=== PATIENT | male | born 1980 | race Caucasian/White ===

== ENCOUNTER 2020-07-30 18:41 | Emergency (ER) | payer OTHER, MEDICAID, SELFPAY ==
--- NOTE | 2020-07-30 18:47 | ED_ITS ---
HPI - Abdominal Pain General Chief Complaint: Abdominal Pain Stated Complaint: stomach pain/constipated Time Seen by Provider: 07/30/20 18:42 Source: patient Mode of arrival: Ambulatory Limitations: no limitations History of Present Illness HPI narrative: 40-year-old male smoker with history of opioid abuse presents with increasing abdominal discomfort and decreased bowel movements for the past 10 days. He denies nausea or vomiting. He does have a decreased appetite. His pain is largely absent but on occasion he has intense episodes of crampy pain without provocation or palliation. He has tried no [id number] laxatives. He denies any fever or chills. He denies any dysuria, frequency or urgency. MD complaint: abdominal pain Onset (ago): day(s) Pain Consistency: intermittent Location: diffuse Severity: moderate Quality: cramping Radiation: none Migration to: no migration Relieving factors: nothing Exacerbating factors: nothing Context: history of similar episodes Associated symptoms: denies other symptoms Related Data Previous Rx's Medication Instructions Recorded methylnaltrexone [Relistor] 150 mg PO DAILY #30 tab 07/30/20 Allergies Allergy/AdvReac Type Severity Reaction Status Date / Time No Known Drug Allergies Allergy Verified 07/30/20 18:52 Review of Systems Constitutional Constitutional: Denies chills, Denies fatigue, Denies fever(s), Denies frequent falls, Denies lethargy and Denies weakness Eyes Eyes: Denies change in vision, Denies eye discharge, Denies irritation and Denies loss of vision ENT Ears, Nose, Mouth, and Throat: Denies change in voice, Denies dizziness, Denies neck pain, Denies sore throat and Denies throat swelling Cardiovascular Cardiovascular: Denies chest pain, Denies irregular heart rhythm, Denies lig htheadedness, Denies palpitations, Denies dyspnea, Denies dyspnea on exertion and Denies orthopnea Respiratory Respiratory: Denies cough, Denies dyspnea, Denies dyspnea on exertion and Denies wheezing Gastrointestinal Gastrointestinal: Reports abdominal pain, Denies change in bowel habits, Reports cramping, Denies diarrhea, Denies nausea and Denies vomiting Musculoskeletal Musculoskeletal: Denies neck pain and Denies numbness Integumentary/Breasts Skin/Breast: Denies pruritus, Denies erythema, Denies rash and Denies wounds Neurologic Neurologic: Denies behavioral changes, Denies confusion, Denies dizziness, Denies frequent falls, Denies loss of vision, Denies numbness and Denies weakness Psychiatric Psychiatric: Denies anxiety, Denies behavioral changes, Denies confusion, Denies depression, Denies homicidal ideation and Denies suicidal ideation Endocrine Endocrine: Denies fatigue, Denies flushing and Denies palpitations Hematologic/Lymphatic Hematologic/Lymphatic: Denies easy bruising Allergic/Immunologic Allergic/Immunologic: Denies urticaria, Denies throat swelling and Denies wheezing Exam Narrative Exam Narrative: GENERAL: [40] year old patient appears stated age. Well- nourished, well-developed patient, in mild distress. HEAD: Atraumatic. Normocephalic. EYES: Pupils equal round and reactive. Extraocular motions intact. No scleral icterus. No injection or drainage. ENT: Nose without bleeding, purulent drainage. Throat without erythema, tonsillar hypertrophy or exudate. Airway patent. NECK: Trachea midline. Non tender CARDIOVASCULAR: Regular rate and rhythm without murmurs, gallops, or rubs. RESPIRATORY: Clear to auscultation. Breath sounds equal bilaterally. No wheezes, rales, or rhonchi. GASTROINTESTINAL: Abdomen soft, non-tender, nondistended. Decreased bowel sounds and right upper quadrant EXTREMITIES: No edema or joint tenderness. BACK: Nontender without deformity or crepitance. No flank tenderness. NEURO: AOx3. SKIN: No rash or erythema of visible areas Initial Vital Signs Initial Vital Signs: Vital Signs Temperature 97.5 F L 07/30/20 18:50 Pulse Rate 89 07/30/20 18:50 Respiratory Rate 22 07/30/20 18:50 Blood Pressure 133/83 07/30/20 18:50 Pulse Oximetry 100 07/30/20 18:50 Course Orders Ordered: ED Orders 07/30/20 18:49 XR acute abdomen series Stat Vital Signs Vital signs: Vital Signs - 8 hr 07/30/20 18:50 07/30/20 19:39 Temperature 97.5 F L Pulse Rate 89 85 Respiratory Rate 22 Blood Pressure 133/83 127/80 Pulse Oximetry 100 100 MDM - Abdominal Pain Imaging Data Abdominal x-ray: Radiologist's Impression: [address] [address] XRay Report Signed Patient: PallaviRoberto ARRIETAR#: [id number] : 1980Acct:[id number] Age/Sex: 40 / MDate of Service: 07/30/20 Loc: ED Accession Number: [id number] Procedure: XR acute abdomen series Ordering Provider: Ashish Jauregui D.O. PROCEDURE: XR ACUTE ABDOMEN SERIES INDICATIONS: Abdominal pain/constipation TECHNIQUE: One view chest and two views of the abdomen were acquired. COMPARISON: None. FINDINGS: Surgical changes and devices: None. Chest: Lungs are clear. Heart size is normal. No pleural effusions. No pneumoperitoneum. Abdomen: Bowel gas pattern is normal except for moderately severe colonic obstipation. No suspicious calcifications. Visualized solid organ contours appear normal. Bones: No suspicious bony lesions. IMPRESSION: Moderately severe colonic obstipation. Dictated by: Ambrocio Celis M.D. on 07/30/2020 at 19:29 Approved by: Ambrocio Celis M.D. on 07/30/2020 at 19:30 MDM Narrative Medical decision making narrative: patient largely asymptomatic. No nausea or vomiting. Soft, non tender belly Discharge Plan Departure Patient Disposition: Home Clinical Impression: Constipation Qualifiers: Constipation type: unspecified constipation type Qualified Code(s): K59.00 - Constipation, unspecified Discharge Date/Time: 07/30/20 19:54 Instructions: DI for Constipation Activity Restrictions/Additional Instructions: *You have been diagnosed with [ abdominal pain due to constipation ] *What to do: *Take over the counter medications as directed: 1. Metamucil - is a bulk forming laxative and adds fiber 2. Colace - softens your stool 3. Dulcolax suppository - stimulates your bowels *Follow up with your primary care provider in 2-3 days, call for appointment *Return to ER if you should have any new, worsening or concerning symptoms *Drink plenty of water and eat foods high in fiber *Stay as active as you can as this helps move your bowels as well Prescriptions: New Relistor 150 mg tablet 150 mg PO DAILY Qty: 30 RF: 0 Referrals: [facility] [Outside]
[2020-07-30 18:50] VITALS: BP 133/83; PULSE 89; RESP 22; TEMP 36.4; O2SAT 100
[2020-07-30 19:39] VITALS: BP 127/80; PULSE 85; O2SAT 100
== END 2020-07-30 19:54 | disposition home or self-care (01) ==
PROVIDERS: Emergency Provider Emergency Medicine
DX: K59.00 Constipation, unspecified (principal)
CPT/HCPCS: 74022; 99281; 99283

== ENCOUNTER 2023-07-30 11:34 | Emergency (ER) | payer OTHER, MEDICAID, SELFPAY ==
[2023-07-30] VITALS (21 sets, daily range): BP systolic 105–125; BP diastolic 56–84; PULSE 74–105; RESP 14–25; TEMP 36.7; O2SAT 91–99; BMI 24.2
--- NOTE | 2023-07-30 11:43 | DI.RAD.S_ITS ---
PROCEDURE: XR CHEST 1V INDICATIONS: Shortness of breath TECHNIQUE: One view of the chest was acquired. COMPARISON: None. FINDINGS: Surgical changes and devices: None. Lungs and pleura: Lungs are clear. No pleural effusions or pneumothorax. Mediastinum: Mediastinal contours appear normal. Heart size is normal. Bones and chest wall: No suspicious bony lesions. Overlying soft tissues appear unremarkable. IMPRESSION: No acute process. Dictated by: Luz Omer M.D. on 07/30/2023 at 12:07 Approved by: Luz Omer M.D. on 07/30/2023 at 12:07
--- NOTE | 2023-07-30 12:20 | PC.NURSE ---
This RN placed patient on 2L nasal cannula due to consistently low O2 saturation.
[2023-07-30 12:25] LABS: Add Manual Diff / Slide Review NO; Basophils Absolute Auto 100 /uL (0-100); Eosinophils Absolute Auto 500 /uL (0-450); Eosinophils Percent Auto 7.6 % (2-4); Hematocrit 44.3 % (41-53); Hemoglobin 15.1 g/dL (13.5-17.5); Lymphocytes Absolute Auto 1700 /uL (1100-4500); Lymphocytes Percent Auto 26.9 % (25-40); Mean Corpuscular HGB Conc 34.2 % (30-36); Mean Corpuscular Hemoglobin 28.2 PG (26-34); Mean Corpuscular Volume 82.5 fL (80-100); Monocytes Absolute Auto 700 /uL (0-900); Monocytes Percent Auto 10.4 % (3-14); Neutrophils Absolute Auto 3400 /uL (1500-7000); Neutrophils Percent Auto 54.1 % (50-75); Platelet Count 363 X10^3/uL (150-400); Red Blood Cell Count 5.37 X10^6/uL (4.5-5.9); Red Cell Distribution Width 13.4 % (11.6-14.8); White Blood Cell Count 6.3 X10^3/uL (4.5-11.0)
[2023-07-30 12:31] LABS: Prothrombin Time 11.5 SECONDS (10.1-12.7)
[2023-07-30 12:39] LABS: Lactate (Lactic Acid) 1.2 mmol/L (0.7-2.1)
[2023-07-30 12:40] LABS: Alanine Aminotransferase 63 IU/L (<50); Albumin 4.5 g/dL (3.5-5.0); Albumin Globulin Ratio 1.4 (1.0-2.8); Alkaline Phosphatase 103 U/L (38-126); Aspartate Aminotransferase 89 IU/L (17-59); BUN Creatinine Ratio 17.9 (6-22); Bilirubin Total 0.2 mg/dL (0.2-1.3); Blood Urea Nitrogen 14 mg/dL (9-20); Calcium 9.2 mg/dL (8.4-10.2); Carbon Dioxide 31 mmol/L (22-32); Chloride 103 mmol/L (98-107); Estimated Glomerular Filt Rate > 60 mL/min (>60); Globulin 3.3 g/dL (1.7-4.1); Glucose 92 mg/dL (70-100); Potassium 4.4 mmol/L (3.4-5.1); Sodium 139 mmol/L (137-145); Total Protein 7.8 g/dL (6.3-8.2)
[2023-07-30 12:46] LABS: HEMOLYSIS 16 (0-50)
[2023-07-30 12:50] LABS: NT-proBNP (BNP-Adult 18+) < 20 pg/mL (<125); Troponin I < 0.012 ng/mL (0.01-0.034)
[2023-07-30] MEDS: ALBUTEROL 2.5 MG/3 ML NEB (ADULT) INH (12:57)
--- NOTE | 2023-07-30 14:33 | ED.SOB ---
HPI - SOB/Dyspnea <Dulce Slater PA-C - Last Filed: 07/30/23 14:43> General Chief Complaint: Shortness of Breath/Dyspnea Stated Complaint: SOB Dyspnea Time Seen by Provider: 07/30/23 14:01 Source: patient Mode of arrival: Ambulatory Limitations: no limitations History of Present Illness HPI Narrative: Patient is a 43-year-old male who presents to the emergency room with shortness of breath. He reports he has been feeling this way for about a month. He vapes tobacco, and smokes fentanyl and crystal meth. He reports he uses these substances in order to not go into withdrawal. He has been evaluated and prescribed Suboxone in the past but reports he can not make it 24 hours in order to start the prescription. 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 He has no history of blood clots and does not use injection drugs. He denies any chest pain with the shortness of breath. He endorses fever and chills over the past week. He has a remote history of asthma as a child but has not needed to use medications for this as an adult. Related Data Previous Rx's Medication Instructions Recorded methylnaltrexone 150 mg tablet 150 mg PO DAILY #30 tabs 07/30/20 (Relistor) albuterol sulfate 90 mcg/actuation 2 puff inhalation Q4-6H PRN 07/30/23 aerosol inhaler shortness of breath or wheezing #8.5 grams amoxicillin 875 mg-potassium 1 tab PO BID pneumonia #10 tabs 07/30/23 clavulanate 125 mg tablet azithromycin 250 mg tablet See Rx Instructions PO .COMPLEX 07/30/23 pneumonia #6 tabs inhalational spacing device (Space #1 ea 07/30/23 Chamber) Allergies Allergy/AdvReac Type Severity Reaction Status Date / Time No Known Drug Allergies Allergy Verified 07/30/23 11:39 Review of Systems <Dulce Slater PA-C - Last Filed: 07/30/23 14:43> Review of Systems ROS Unobtainable: All systems reviewed & are unremarkable except as noted in HPI and below Patient History <Dulce Slater PA-C - Last Filed: 07/30/23 14:43> Social History Smoking Status: Unknown if ever smoked Smoking Status: Unknown if ever smoked alcohol intake frequency: holidays/special occasions only Substance Use Type: opiates and methamphetamine Exam <Dulce Slater PA-C - Last Filed: 07/30/23 14:43> Narrative Exam Narrative: GENERAL: 43 year old patient appears older than stated age. Well-developed patient, in no distress. NEURO: AOx3. HEAD: Atraumatic. Normocephalic. EYES: Pupils equal round and reactive. Extraocular motions intact. No scleral icterus. No injection or drainage. ENT: Nose without bleeding or purulent drainage. Airway patent. Poor dentition. CARDIOVASCULAR: Regular rate and rhythm without murmurs, gallops, or rubs. RESPIRATORY: Breath sounds diminished in right lower lobe, no wheeze or rhonchi noted. GASTROINTESTINAL: Abdomen soft, non-tender, nondistended. EXTREMITIES: No edema or joint tenderness. SKIN: No rash or erythema of visible areas Initial Vital Signs Initial Vital Signs: Vital Signs Temperature 98.0 F 07/30/23 11:40 Pulse Rate 105 H 07/30/23 11:40 Respiratory Rate 15 07/30/23 11:40 Blood Pressure 114/78 07/30/23 11:40 Pulse Oximetry 91 07/30/23 11:40 Oxygen Delivery Method Room Air 07/30/23 11:40 <Mamta Mckeon DO - Last Filed: 07/30/23 18:20> Initial Vital Signs Initial Vital Signs: Vital Signs Temperature 98.0 F 07/30/23 11:40 Pulse Rate 105 H 07/30/23 11:40 Respiratory Rate 15 07/30/23 11:40 Blood Pressure 114/78 07/30/23 11:40 Pulse Oximetry 91 07/30/23 11:40 Oxygen Delivery Method Room Air 07/30/23 11:40 Scores <Dulce Slater PA-C - Last Filed: 07/30/23 14:43> Wells' Criteria for PE Clinical signs and symptoms of DVT: No PE is #1 Dx or equally likely: No Heart rate > 100: No Immobilization at least 3 days or surg in previous 4 weeks: No History of PE or DVT: No Hemoptysis: No Malignancy w/Treatment within 6 months or palliative: No Wells' PE Score total: 0 <Mamta Mckeon DO - Last Filed: 07/30/23 18:20> Wells' Criteria for PE Wells' PE Score total: 0 Course <Dulce Slater PA-C - Last Filed: 07/30/23 14:43> Orders Ordered: ED Orders 07/30/23 11:43 XR chest 1V Stat Measure peak expiratory flow ONCE RT Consult Eval and Treat NOW 07/30/23 11:52 EKG-12 Lead Stat 07/30/23 12:10 Complete Blood Count AUTO DIFF Stat Comprehensive Metabolic Panel Stat Lactate (Lactic Acid) Stat NT-proBNP (BNP-Adult 18+) Stat Prothrombin Time INR Stat Troponin I Stat 07/30/23 14:17 Consult to [facility] Chief [facility] Stat Discontinued Medications Albuterol (Albuterol 2.5 Mg/3 Ml Neb (Adult)) 2.5 mg INH NOW ONE Stop: 07/30/23 12:53 Last Admin: 07/30/23 12:57 Dose: 2.5 mg Documented By: SAT Vital Signs Vital signs: Vital Signs - 8 hr 07/30/23 11:40 07/30/23 11:48 07/30/23 11:49 Temperature 98.0 F Pulse Rate 105 H 104 H Respiratory Rate 15 17 Blood Pressure 114/78 123/80 Pulse Oximetry 91 93 Oxygen Delivery Method Room Air Room Air 07/30/23 11:49 07/30/23 12:00 07/30/23 12:00 Temperature Pulse Rate 103 H 98 H Respiratory Rate 17 15 Blood Pressure 110/74 Pulse Oximetry 92 91 Oxygen Delivery Method Room Air Room Air 07/30/23 12:59 07/30/23 12:18 07/30/23 12:18 Temperature Pulse Rate 97 H 92 H Respiratory Rate 18 16 Blood Pressure 112/75 Pulse Oximetry 98 95 Oxygen Delivery Method Room Air 07/30/23 12:20 07/30/23 12:20 07/30/23 12:30 Temperature Pulse Rate 92 H Respiratory Rate 17 Blood Pressure 118/70 125/72 Pulse Oximetry 95 Oxygen Delivery Method 07/30/23 12:30 07/30/23 12:40 07/30/23 12:40 Temperature Pulse Rate 83 94 H Respiratory Rate 21 17 Blood Pressure 117/72 Pulse Oximetry 94 96 Oxygen Delivery Method 07/30/23 12:50 07/30/23 12:50 07/30/23 13:00 Temperature Pulse Rate 81 Respiratory Rate 16 Blood Pressure 115/76 124/84 Pulse Oximetry 94 Oxygen Delivery Method 07/30/23 13:00 07/30/23 13:10 07/30/23 13:10 Temperature Pulse Rate 97 H 93 H Respiratory Rate 23 17 Blood Pressure 119/78 Pulse Oximetry 99 92 Oxygen Delivery Method 07/30/23 13:20 07/30/23 13:20 07/30/23 13:30 Temperature Pulse Rate 79 Respiratory Rate 20 Blood Pressure 112/71 123/60 Pulse Oximetry 94 Oxygen Delivery Method 07/30/23 13:30 07/30/23 13:41 07/30/23 13:41 Temperature Pulse Rate 75 74 Respiratory Rate 16 16 Blood Pressure 106/72 Pulse Oximetry 92 93 Oxygen Delivery Method 07/30/23 13:50 07/30/23 13:50 07/30/23 14:00 Temperature Pulse Rate 81 Respiratory Rate 14 Blood Pressure 105/56 L 110/62 Pulse Oximetry 91 Oxygen Delivery Method 07/30/23 14:00 07/30/23 14:10 07/30/23 14:10 Temperature Pulse Rate 80 92 H Respiratory Rate 14 25 H Blood Pressure 118/76 Pulse Oximetry 91 96 Oxygen Delivery Method 07/30/23 14:20 07/30/23 14:20 07/30/23 14:30 Temperature Pulse Rate 78 Respiratory Rate 16 Blood Pressure 107/60 109/67 Pulse Oximetry Oxygen Delivery Method 07/30/23 14:30 07/30/23 14:40 07/30/23 14:40 Temperature Pulse Rate 87 81 Respiratory Rate 23 14 Blood Pressure 116/73 Pulse Oximetry 94 94 Oxygen Delivery Method <Mamta Mckeon, - Last Filed: 07/30/23 18:20> Orders Ordered: ED Orders 07/30/23 11:43 XR chest 1V Stat Measure peak expiratory flow ONCE RT Consult Eval and Treat NOW 07/30/23 11:52 EKG-12 Lead Stat 07/30/23 12:10 Complete Blood Count AUTO DIFF Stat Comprehensive Metabolic Panel Stat Lactate (Lactic Acid) Stat NT-proBNP (BNP-Adult 18+) Stat Prothrombin Time INR Stat Troponin I Stat 07/30/23 14:17 Consult to DEHYDROGENATION OPERATOR [employer] - Waterworks Chief Engineer Stat Discontinued Medications Albuterol (Albuterol 2.5 Mg/3 Ml Neb (Adult)) 2.5 mg INH NOW ONE Stop: 07/30/23 12:53 Last Admin: 07/30/23 12:57 Dose: 2.5 mg Documented By: SAT Vital Signs Vital signs: Vital Signs - 8 hr 07/30/23 11:40 07/30/23 11:48 07/30/23 11:49 Temperature 98.0 F Pulse Rate 105 H 104 H Respiratory Rate 15 17 Blood Pressure 114/78 123/80 Pulse Oximetry 91 93 Oxygen Delivery Method Room Air Room Air 07/30/23 11:49 07/30/23 12:00 07/30/23 12:00 Temperature Pulse Rate 103 H 98 H Respiratory Rate 17 15 Blood Pressure 110/74 Pulse Oximetry 92 91 Oxygen Delivery Method Room Air Room Air 07/30/23 12:59 07/30/23 12:18 07/30/23 12:18 Temperature Pulse Rate 97 H 92 H Respiratory Rate 18 16 Blood Pressure 112/75 Pulse Oximetry 98 95 Oxygen Delivery Method Room Air 07/30/23 12:20 07/30/23 12:20 07/30/23 12:30 Temperature Pulse Rate 92 H Respiratory Rate 17 Blood Pressure 118/70 125/72 Pulse Oximetry 95 Oxygen Delivery Method 07/30/23 12:30 07/30/23 12:40 07/30/23 12:40 Temperature Pulse Rate 83 94 H Respiratory Rate 21 17 Blood Pressure 117/72 Pulse Oximetry 94 96 Oxygen Delivery Method 07/30/23 12:50 07/30/23 12:50 07/30/23 13:00 Temperature Pulse Rate 81 Respiratory Rate 16 Blood Pressure 115/76 124/84 Pulse Oximetry 94 Oxygen Delivery Method 07/30/23 13:00 07/30/23 13:10 07/30/23 13:10 Temperature Pulse Rate 97 H 93 H Respiratory Rate 23 17 Blood Pressure 119/78 Pulse Oximetry 99 92 Oxygen Delivery Method 07/30/23 13:20 07/30/23 13:20 07/30/23 13:30 Temperature Pulse Rate 79 Respiratory Rate 20 Blood Pressure 112/71 123/60 Pulse Oximetry 94 Oxygen Delivery Method 07/30/23 13:30 07/30/23 13:41 07/30/23 13:41 Temperature Pulse Rate 75 74 Respiratory Rate 16 16 Blood Pressure 106/72 Pulse Oximetry 92 93 Oxygen Delivery Method 07/30/23 13:50 07/30/23 13:50 07/30/23 14:00 Temperature Pulse Rate 81 Respiratory Rate 14 Blood Pressure 105/56 L 110/62 Pulse Oximetry 91 Oxygen Delivery Method 07/30/23 14:00 07/30/23 14:10 07/30/23 14:10 Temperature Pulse Rate 80 92 H Respiratory Rate 14 25 H Blood Pressure 118/76 Pulse Oximetry 91 96 Oxygen Delivery Method 07/30/23 14:20 07/30/23 14:20 07/30/23 14:30 Temperature Pulse Rate 78 Respiratory Rate 16 Blood Pressure 107/60 109/67 Pulse Oximetry Oxygen Delivery Method 07/30/23 14:30 07/30/23 14:40 07/30/23 14:40 Temperature Pulse Rate 87 81 Respiratory Rate 23 14 Blood Pressure 116/73 Pulse Oximetry 94 94 Oxygen Delivery Method MDM - SOB/Dyspnea <Dulce Slater PA-C - Last Filed: 07/30/23 14:43> Lab Data 07/30/23 12:10 07/30/23 12:10 Labs: Lab Results 07/30/23 07/30/23 07/30/23 Range/Units 12:10 12:10 12:10 WBC 6.3 (4.5-11.0) X10^3/uL RBC 5.37 (4.5-5.9) X10^6/uL Hgb 15.1 (13.5-17.5) g/dL Hct 44.3 (41-53) % MCV 82.5 (80-100) fL MCH 28.2 (26-34) PG MCHC 34.2 (30-36) % RDW 13.4 (11.6-14.8) % Plt Count 363 (150-400) X10^3/uL Neut % (Auto) 54.1 (50-75) % Lymph % (Auto) 26.9 (25-40) % [place] % (Auto) 10.4 (3-14) % Eos % (Auto) 7.6 H (2-4) % Baso % (Auto) 1.0 (0-2) % Neut # (Auto) 3400 (8629-8777) /uL Lymph # (Auto) 1700 (2346-2874) /uL [place] # (Auto) 700 (0-900) /uL Eos # (Auto) 500 H (0-450) /uL Baso # (Auto) 100 (0-100) /uL PT 11.5 (10.1-12.7) SECONDS INR 1.0 (0.9-1.3) Sodium 139 (137-145) mmol/L Potassium 4.4 (3.4-5.1) mmol/L Chloride 103 (98-107) mmol/L Carbon Dioxide 31 (22-32) mmol/L BUN 14 (9-20) mg/dL Creatinine 0.78 (0.66-1.25) mg/dL Estimated GFR > 60 (>60) mL/min BUN/Creatinine Ratio 17.9 (6-22) Glucose 92 (70-100) mg/dL Lactate (0.7-2.1) mmol/L Calcium 9.2 (8.4-10.2) mg/dL Total Bilirubin 0.2 (0.2-1.3) mg/dL AST 89 H (17-59) IU/L ALT 63 H (<50) IU/L Alkaline Phosphatase 103 (38-126) U/L Troponin I < 0.012 (0.01-0.034) ng/mL NT-Pro-B Natriuret Pep < 20 (<125) pg/mL Total Protein 7.8 (6.3-8.2) g/dL Albumin 4.5 (3.5-5.0) g/dL Globulin 3.3 (1.7-4.1) g/dL Albumin/Globulin Ratio 1.4 (1.0-2.8) 07/30/23 Range/Units 12:10 WBC (4.5-11.0) X10^3/uL RBC (4.5-5.9) X10^6/uL Hgb (13.5-17.5) g/dL Hct (41-53) % MCV (80-100) fL MCH (26-34) PG MCHC (30-36) % RDW (11.6-14.8) % Plt Count (150-400) X10^3/uL Neut % (Auto) (50-75) % Lymph % (Auto) (25-40) % [place] % (Auto) (3-14) % Eos % (Auto) (2-4) % Baso % (Auto) (0-2) % Neut # (Auto) (5657-8133) /uL Lymph # (Auto) (9552-4590) /uL [place] # (Auto) (0-900) /uL Eos # (Auto) (0-450) /uL Baso # (Auto) (0-100) /uL PT (10.1-12.7) SECONDS INR (0.9-1.3) Sodium (137-145) mmol/L Potassium (3.4-5.1) mmol/L Chloride (98-107) mmol/L Carbon Dioxide (22-32) mmol/L BUN (9-20) mg/dL Creatinine (0.66-1.25) mg/dL Estimated GFR (>60) mL/min BUN/Creatinine Ratio (6-22) Glucose (70-100) mg/dL Lactate 1.2 (0.7-2.1) mmol/L Calcium (8.4-10.2) mg/dL Total Bilirubin (0.2-1.3) mg/dL AST (17-59) IU/L ALT (<50) IU/L Alkaline Phosphatase (38-126) U/L Troponin I (0.01-0.034) ng/mL NT-Pro-B Natriuret Pep (<125) pg/mL Total Protein (6.3-8.2) g/dL Albumin (3.5-5.0) g/dL Globulin (1.7-4.1) g/dL Albumin/Globulin Ratio (1.0-2.8) Imaging Data Chest x-ray: Radiologist's Impression: PROCEDURE:? XR CHEST 1V ? INDICATIONS:? Shortness of breath ? TECHNIQUE:? One view of the chest was acquired.? ? COMPARISON:? None. ? FINDINGS:? ? Surgical changes and devices:? None.? ? Lungs and pleura:? Lungs are clear.? No pleural effusions or pneumothorax.? ? Mediastinum:? Mediastinal contours appear normal.? Heart size is normal.? ? Bones and chest wall:? No suspicious bony lesions.? Overlying soft tissues appear unremarkable.? ? ? IMPRESSION:? No acute process. ? ? Dictated by: Luz Omer M.D. on 07/30/2023 at 12:07 ? ? Approved by: Luz Omer M.D. on 07/30/2023 at 12:07 ? MDM Narrative Medical decision making narrative: Multiple etiologies for patient's symptoms considered including, but not limited to: Asthma exacerbation, pneumonia, pulmonary embolism, CHF. Patient with no history of blood clots, no calf tenderness or swelling, no tachycardia while in emergency department and no chest pain or hemoptysis. Does not currently use any IV drugs. Labs without clinically significant abnormality aside from mildly elevated LFTs; patient reports no right upper quadrant pain and is nontender on exam. Strongly recommend follow-up with PCP, as he likely needs hepatitis screening and repeat lab (DEHYDROGENATION OPERATOR HEAD met with patient while in emergency room and provided resources for establishing PCP). Patient received DuoNeb on arrival; reports improvement in shortness of breath and has no wheeze on my exam. Chest x-ray suspicious for right lower lobe infiltrate and patient reports recent fever and chills with oxygen saturation 92-95% on room air while in the emergency room. We will treat for community acquired pneumonia and give albuterol inhaler for wheeze. Discussed substance use treatment, stop vaping in and limit exposure to dust if at all possible given likely reactive airway component. Patient's symptoms improved over duration of stay with above-stated therapies. Findings and discharge diagnosis discussed with patient/family followed by verbalization of understanding Return precautions discussed with patient/family whom verbalize understanding of diagnosis and plan <Mamta Mckeon, DO - Last Filed: 07/30/23 18:20> Lab Data Labs: Lab Results 07/30/23 07/30/23 07/30/23 Range/Units 12:10 12:10 12:10 WBC 6.3 (4.5-11.0) X10^3/uL RBC 5.37 (4.5-5.9) X10^6/uL Hgb 15.1 (13.5-17.5) g/dL Hct 44.3 (41-53) % MCV 82.5 (80-100) fL MCH 28.2 (26-34) PG MCHC 34.2 (30-36) % RDW 13.4 (11.6-14.8) % Plt Count 363 (150-400) X10^3/uL Neut % (Auto) 54.1 (50-75) % Lymph % (Auto) 26.9 (25-40) % [place] % (Auto) 10.4 (3-14) % Eos % (Auto) 7.6 H (2-4) % Baso % (Auto) 1.0 (0-2) % Neut # (Auto) 3400 (3126-7861) /uL Lymph # (Auto) 1700 (6181-8461) /uL [place] # (Auto) 700 (0-900) /uL Eos # (Auto) 500 H (0-450) /uL Baso # (Auto) 100 (0-100) /uL PT 11.5 (10.1-12.7) SECONDS INR 1.0 (0.9-1.3) Sodium 139 (137-145) mmol/L Potassium 4.4 (3.4-5.1) mmol/L Chloride 103 (98-107) mmol/L Carbon Dioxide 31 (22-32) mmol/L BUN 14 (9-20) mg/dL Creatinine 0.78 (0.66-1.25) mg/dL Estimated GFR > 60 (>60) mL/min BUN/Creatinine Ratio 17.9 (6-22) Glucose 92 (70-100) mg/dL Lactate (0.7-2.1) mmol/L Calcium 9.2 (8.4-10.2) mg/dL Total Bilirubin 0.2 (0.2-1.3) mg/dL AST 89 H (17-59) IU/L ALT 63 H (<50) IU/L Alkaline Phosphatase 103 (38-126) U/L Troponin I < 0.012 (0.01-0.034) ng/mL NT-Pro-B Natriuret Pep < 20 (<125) pg/mL Total Protein 7.8 (6.3-8.2) g/dL Albumin 4.5 (3.5-5.0) g/dL Globulin 3.3 (1.7-4.1) g/dL Albumin/Globulin Ratio 1.4 (1.0-2.8) 07/30/23 Range/Units 12:10 WBC (4.5-11.0) X10^3/uL RBC (4.5-5.9) X10^6/uL Hgb (13.5-17.5) g/dL Hct (41-53) % MCV (80-100) fL MCH (26-34) PG MCHC (30-36) % RDW (11.6-14.8) % Plt Count (150-400) X10^3/uL Neut % (Auto) (50-75) % Lymph % (Auto) (25-40) % [place] % (Auto) (3-14) % Eos % (Auto) (2-4) % Baso % (Auto) (0-2) % Neut # (Auto) (2927-4486) /uL Lymph # (Auto) (9905-8276) /uL [place] # (Auto) (0-900) /uL Eos # (Auto) (0-450) /uL Baso # (Auto) (0-100) /uL PT (10.1-12.7) SECONDS INR (0.9-1.3) Sodium (137-145) mmol/L Potassium (3.4-5.1) mmol/L Chloride (98-107) mmol/L Carbon Dioxide (22-32) mmol/L BUN (9-20) mg/dL Creatinine (0.66-1.25) mg/dL Estimated GFR (>60) mL/min BUN/Creatinine Ratio (6-22) Glucose (70-100) mg/dL Lactate 1.2 (0.7-2.1) mmol/L Calcium (8.4-10.2) mg/dL Total Bilirubin (0.2-1.3) mg/dL AST (17-59) IU/L ALT (<50) IU/L Alkaline Phosphatase (38-126) U/L Troponin I (0.01-0.034) ng/mL NT-Pro-B Natriuret Pep (<125) pg/mL Total Protein (6.3-8.2) g/dL Albumin (3.5-5.0) g/dL Globulin (1.7-4.1) g/dL Albumin/Globulin Ratio (1.0-2.8) ECG Data Attestation: I personally reviewed and interpreted this ECG as follows: Interpretation: Mank: Sinus rhythm rate of 99 CA 140 QRS 86 QTC [address] No acute [address] elevation depression noted. Discharge Plan Departure Patient Disposition: Home Clinical Impression: Community acquired pneumonia Instructions: DI for Pneumonia -- Adult Activity Restrictions/Additional Instructions: *You have been diagnosed with pneumonia. I will prescribe antibiotics to treat the pneumonia as well as an albuterol inhaler which you can use if you feel short of breath with wheezing. I highly encourage you to stop vaping, as this will cause further inflammation and irritation of your lungs. It also increases your risk of lung cancer. 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 I would also strongly encourage you to consider Suboxone or methadone treatment for your substance use, as this greatly increases your risk of overdose and . If you are still feeling short of breath or having fever and chills after completing your antibiotic course, please seek care for reassessment. Please take all the antibiotic pills, even if you are feeling better, to fully treat your infection. *What to do: *Please continue to take your regular medications as directed. [x ] New medication prescriptions sent to your pharmacy: [[facility]] [ ] New medication written as a paper prescription [ ] No new medications given *Please follow up with your primary care provider in 2-3 days, call for an appointment. Let them know you were seen in the Emergency Department and that we ask that you be seen in follow up. We will electronically transmit a record of today's note if your PCP is in our system *If you do not have a primary care provider please contact the [facility] Resource line at [phone]. They will ask some questions about your medical history and help get you set up with a doctor in the community. *Return to Emergency Department if you should have any new, worsening or concerning symptoms, such as [fever greater than 101 F, shaking chills, worsening pain, persistent vomiting or other concerning symptoms]. Prescriptions: New amoxicillin-pot clavulanate 875-125 mg tablet 1 tab PO BID Qty: 10 0RF azithromycin 250 mg tablet See Rx Instructions .ROUTE .COMPLEX Qty: 6 0RF Rx Instructions: For 250 mg dose pack: take 500 mg today (day 1), then 250 mg for 4 days (days 2-5) albuterol sulfate 90 mcg/actuation HFA aerosol inhaler 2 puff inhalation Q4-6H PRN (Reason: shortness of breath or wheezing) Qty: 8.5 0RF (DME) Space Chamber Spacer See Rx Instructions .Route Qty: 1 0RF Rx Instructions: As directed No Action Relistor 150 mg tablet 150 mg PO DAILY Qty: 30 0RF Stand Alone Forms: Patient Portal/API, Naloxone Standing Order WADOMilady, Work Release Note <Mamta Mckeon, DO - Last Filed: 07/30/23 18:20> Cosign ED Attending Cosignature Attestation: I was immediately available in the department for consultation. Documentation has been reviewed.
--- NOTE | 2023-07-30 14:39 | CM.SWNOTE ---
ED CONCRETE BUCKET LOADER Note Patient is 43 y/o male who presents to ED due to concern for SOB. CONCRETE BUCKET LOADER receives consult from ED provider GILBERTO Parr due to concern for patient's lack of outpatient f/u and substance use. CONCRETE BUCKET LOADER enters room to meet with patient. Patient presents as A/Ox4. Patient endorses he is interested in dentist to get his teeth pulled rather than seeking a PCP at this time. Patient endorses he lives in [place], receives food stamps and has basic needs met. Patient endorses he uses substances to maintain normalcy not to get high. Patient endorses he uses Fentanyl and Crystal Meth. Patient endorses it calms me down, patient endorses hx of ADHD dx and rx. Patient states hx of utilizing [facility] and rx for Suboxone but states that they told him they did not take his insurance anymore. CONCRETE BUCKET LOADER checks with registration and verifies that patient's insurance is [employer], and patient thought he was on [employer]. CONCRETE BUCKET LOADER provides patient with a list of [facility] outpatient resources including [facility] and encourages patient to f/u and see if they take his current insurance. CONCRETE BUCKET LOADER provides patient with [facility] information regarding dental care for patient with Medicaid. CONCRETE BUCKET LOADER reviews this with ED provider. Patient to discharge to home upon medical clearance, patient to f/u with resources provided. STEPHANIE Carballo
== END 2023-07-30 14:53 | disposition home or self-care (01) ==
PROVIDERS: Emergency Medicine; Emergency Provider Physician Assistant
DX: J18.9 Pneumonia, unspecified organism (principal); R06.02 Shortness of breath
CPT/HCPCS: 36415; 71045; 80053; 83605; 83880; 84484; 85025; 85610; 93005; 93010; 94640; 99284; J7613